=== PATIENT | male | born 1985 | race African-American/Black ===

== ENCOUNTER 2019-05-04 20:26 | Emergency (ER) | payer SELFPAY ==
[2019-05-04] MEDS ORDERED: METOCLOPRAMIDE HCL ORAL SOLN 10 MG/10 ML UDCUP PO ONE (22:29)
[2019-05-04] MEDS ORDERED: LIDOCAINE 2% VISCOUS SOLN 20 ML UDCUP PO ONE (22:29)
[2019-05-04] MEDS ORDERED: MAG HYDROX/AL HYDROX/SIMETH SUSP 30 ML UDCUP PO ONE (22:29)
--- NOTE | 2019-05-04 22:35 | ER Document Report ---
ED Medical Screen (RME) - General Chief Complaint: Cough Stated Complaint: CHEST PAIN Time Seen by Provider: 05/04/19 22:14 Notes: 34-year-old male presents the emergency department with multiple complaints. 1: Patient states that he has had a intermittent productive cough since February when he was diagnosed with pneumonia and placed on amoxicillin. 2: Patient has developed acute shortness of breath over the past several days unsure if it is related to the cough. Patient states that it is significantly worse when he lays down and he feels like he is gasping for air note, patient states he does have a history of GERD. 3: He has had some right-sided chest pain and right upper quadrant pain that is been constant x1 week. 4: Patient has developed a pustular rash in the past 1 year that is covered his entire anterior thorax and his bilateral axillary areas. EXAM: Well-appearing in no acute distress, lungs are clear to auscultation in all whyte, regular cardiac rate and rhythm with no murmurs heard, patient does have a large pustular rash over his entire anterior chest and abdomen, bilateral axillary areas in various stages of healing with some scarring I have greeted and performed a rapid initial assessment of this patient. A comprehensive ED assessment and evaluation of the patient, analysis of test results and completion of medical decision making process will be conducted by an additional ED providers. TRAVEL OUTSIDE OF THE [place] IN LAST 30 DAYS: No Past Medical History - Social History Drug Abuse: Marijuana Physical Exam - Vital signs Vitals: Temp Pulse Resp BP Pulse Ox 99.8 F 84 14 127/85 H 100 05/04/19 20:30 05/04/19 20:30 05/04/19 20:30 05/04/19 20:30 05/04/19 20:30 Course - Vital Signs Vital signs: Temp Pulse Resp BP Pulse Ox 99.8 F 84 14 127/85 H 100 05/04/19 20:30 05/04/19 20:30 05/04/19 20:30 05/04/19 20:30 05/04/19 20:30
--- NOTE | 2019-05-04 23:29 | RADIOLOGY REPORT (SQ) ---
EXAM DESCRIPTION: [facility]: XR CHEST 2 VIEWS Views: 2 CLINICAL HISTORY: 34 years Male, cough/ chest pain COMPARISON: None. FINDINGS: The lungs are clear. No pneumothorax or significant pleural effusion. Cardiomediastinal silhouette is within normal limits. Bony structures are unremarkable for age. IMPRESSION: 1. No acute cardiothoracic abnormality.
[2019-05-04] MEDS ORDERED: CEPHALEXIN 500 MG CAPSULE PO ONE (23:57)
[2019-05-04] MEDS ORDERED: SULFAMETHOXAZOLE/TRIMETHOPRIM 800-160 MG TABLET PO ONE (23:57)
[2019-05-04] MEDS ORDERED: IBUPROFEN 600 MG TABLET PO ONE (23:57)
--- NOTE | 2019-05-05 01:06 | ER Document Report ---
ED General - General Chief Complaint: Cough Stated Complaint: CHEST PAIN Time Seen by Provider: 05/04/19 22:14 Notes: Patient is a 34-year-old male presents to the emergency department for multiple complaints. Patient states on February 12 he presented to an emergency room and was told he had pneumonia. States at that time he had generalized cough, congestion, right-sided chest pain. States he was given amoxicillin for said pneumonia. States he did not finish the antibiotics. States over the last week he has had recurrence of his right-sided chest pain as well as cough congestion. States the right-sided chest pain increases with inspiration and palpation. Patient also complains of a generalized rash he has over his entire chest. States that said rash also hurts to touch. Patient states he was concerned because he did not finish the initial antibiotics for his pneumonia and is concerned pneumonia is back. Patient voices he does smoke marijuana and cigarettes. Patient's denying any nausea, vomiting, diarrhea, fevers, abdominal pain, dysuria. Patient voices he does have a history of ulcerative colitis and acid reflux. States he currently does not take medications for either as he is uninsured. TRAVEL OUTSIDE OF THE [place] IN LAST 30 DAYS: No Past Medical History - General Information source: Patient - Social History Smoking Status: Current Some Day Smoker Drug Abuse: Marijuana Family History: Reviewed & Not Pertinent Patient has suicidal ideation: No Patient has homicidal ideation: No GI Medical History: Reports: Hx Gastroesophageal Reflux Disease Psychiatric Medical History: Reports: Hx Depression Review of Systems - Review of Systems Constitutional: denies: Fever EENT: See HPI Cardiovascular: See HPI Respiratory: See HPI Gastrointestinal: No symptoms reported Genitourinary: No symptoms reported Male Genitourinary: No symptoms reported Musculoskeletal: No symptoms reported Skin: See HPI Hematologic/Lymphatic: No symptoms reported Neurological/Psychological: No symptoms reported Physical Exam - Vital signs Vitals: Temp Pulse Resp BP Pulse Ox 99.8 F 84 14 127/85 H 100 05/04/19 20:30 05/04/19 20:30 05/04/19 20:30 05/04/19 20:30 05/04/19 20:30 - Notes Notes: GENERAL: Alert, interacts well. No acute distress. HEAD: Normocephalic, atraumatic. EYES: Pupils equal, round, and reactive to light. Extraocular movements intact. ENT: Oral mucosa moist, tongue midline. Nares patent, TM's intact, nonerythematous, nonbulging bilaterally. Pharynx within normal limits no palatal petechiae noted. NECK: Full range of motion. Supple. Trachea midline. No lymphadenopathy appreciated LUNGS: Clear to auscultation bilaterally, no wheezes, rales, or rhonchi. No respiratory distress. HEART: Regular rate and rhythm. No murmur Chest: No crepitus felt, no ecchymosis noted anterior, posterior chest wall. ABDOMEN: Soft, non-tender. Non-distended. Bowel sounds present in all 4 quadrants. EXTREMITIES: Moves all 4 extremities spontaneously. No edema, normal radial and dorsalis pedis pulses bilaterally. No cyanosis. BACK: no cervical, thoracic, lumbar midline tenderness. No saddle anesthesia, normal distal neurovascular exam. NEUROLOGICAL: Alert and oriented x3. Normal speech. cranial nerves II through XII grossly intact. PSYCH: Normal affect, normal mood. SKIN: Warm, dry, normal turgor. Multiple pustular lesions noted anterior chest, bilateral armpits and posterior chest wall. Many of them are surrounded erythemic tissue, no large areas of fluctuance noted. Course - Re-evaluation Re-evalutation: 05/05/19 01:06 After treatment with GI cocktail, Motrin patient voices he no longer has the chest discomfort. Patient will be treated with antibiotics for superficial skin infection. Discussed continued use of indigestion medications as well as following up at [facility], [facility]. At this time will discharge with return precautions and follow-up recommendations. Verbal discharge instructions given a the bedside and opportunity for questions given. Medication warnings reviewed. Patient is in agreement with this plan and has verbalized understanding of return precautions and the need for primary care follow-up in the next 24-72 hours. This medical record was dictated with voice recognizing software. There may be grammatical, syntax errors that are unintended. 05/05/19 01:08 Chest X-Ray 05/04/19 22:28 IMPRESSION: 1. No acute cardiothoracic abnormality. EKG shows sinus rhythm rate of 72, QTc 434, no ST segment elevations or depressions noted, read by Dr. Palacios. - Vital Signs Vital signs: Temp Pulse Resp BP Pulse Ox 99.8 F 84 14 127/85 H 100 05/04/19 20:30 05/04/19 20:30 05/04/19 20:30 05/04/19 20:30 05/04/19 20:30 Discharge - Discharge Clinical Impression: Skin pustule, Chest wall pain Cellulitis Qualifiers: Site of cellulitis: trunk Site of cellulitis of trunk: chest wall Qualified Code(s): L03.313 - Cellulitis of chest wall Gastritis Qualifiers: Gastritis type: other gastritis Chronicity: chronic Gastritis bleeding: without bleeding Qualified Code(s): K29.50 - Unspecified chronic gastritis without bleeding Upper respiratory infection Qualifiers: URI type: unspecified viral URI Qualified Code(s): J06.9 - Acute upper respiratory infection, unspecified Condition: Stable Disposition: HOME, SELF-CARE Instructions: Anti-Inflammatory Medication ([facility]), Cephalexin ([facility]), Chest Wall Pain ([facility]), Trimethoprim-Sulfa ([facility]), Upper Respiratory Illness ([facility]), Gastritis ([facility]) Additional Instructions: As we discussed you have been seen and treated in the emergency department for concerns of possible pneumonia. Your chest x-ray shows no signs of pneumonia. You likely have an upper respiratory infection that is causing your chest wall pain. He also been treated for indigestion. Please take medications as prescribed. Please also take antibiotics for skin infection noted to your c hest. Please follow-up at [facility], [facility] for continued care. Please return to the emergency room for any concerns. Prescriptions: Sulfamethoxazole/Trimethoprim [Bactrim Ds Tablet] 1 each PO BID 7 Days #14 tablet Cephalexin Monohydrate [Keflex 500 mg Capsule] 500 mg PO BID 7 Days #14 capsule Famotidine [Pepcid 40 mg Tablet] 40 mg PO BID #60 tablet Forms: Smoking Cessation Education Referrals: [facility] [Provider Group] - Follow up as needed [facility] [Provider Group] - Follow up as needed
[2019-05-05 01:17] VITALS: BP 119/74
--- NOTE | 2019-05-07 09:16 | EKG REPORT ---
SEVERITY:- BORDERLINE ECG - SINUS RHYTHM PROBABLE LEFT ATRIAL ABNORMALITY : Confirmed by: Kieran Araya 07-May-2019 09:16:08
== END 2019-05-05 01:21 | disposition home or self-care (01) ==
LOC: ER 20:26
DX: J06.9 Acute upper respiratory infection, unspecified (principal); L08.9 Local infection of the skin and subcutaneous tissue, unspecified; L03.313 Cellulitis of chest wall; K29.50 Unspecified chronic gastritis without bleeding; R05 Cough; R07.9 Chest pain, unspecified; R09.81 Nasal congestion; R09.89 Other specified symptoms and signs involving the circulatory and respiratory systems; R21 Rash and other nonspecific skin eruption; F17.200 Nicotine dependence, unspecified, uncomplicated
CPT/HCPCS: 99285; 71046; J3490; 93005; 93010